=== PATIENT | male | born 1950 | race Two or more races ===

== ENCOUNTER 2022-03-18 07:28 | Outpatient (CLI) | payer OTHER | END 2022-03-18 07:29 | disposition home or self-care (01) | LOC: NUCLEAR 07:28 | PROVIDERS: ATTEND Family Medicine | DX: C61 Malignant neoplasm of prostate (principal) | CPT/HCPCS: 78306; A9503 ==

== ENCOUNTER 2023-03-24 11:11 | Emergency (ER) | payer OTHER ==
[~2023-03-24] VITALS: Ht 162.6 cm; Wt 72.6 kg
[2023-03-24] MEDS ORDERED: COZAAR25 MG PO (11:42)
[2023-03-24] MEDS ORDERED: VISTARIL25 MG PO (14:00)
== END 2023-03-24 14:02 | disposition home or self-care (01) ==
LOC: ER 11:11
DX: G44.89 Other headache syndrome (principal); F41.9 Anxiety disorder, unspecified